=== PATIENT | female | born 1960 | race Caucasian/White ===

== ENCOUNTER → 2016-07-27 | Outpatient (CLI) | payer BC ==
--- NOTE | 2016-07-27 15:04 | ECGEPIP ---
Stationary ECG Study [facility] Test Date: 2016-07-27 Pat Name: HUBER TRONCOSO Department: Room: - Gender: F Lost Charge Card Clerk: BRITTANY : 1960 Requested By: Jennifer Lundberg Order Number: [id number] Reading MD: Rody Wheeler Measurements Intervals [place] Rate: 71 P: 65 CO: 148 QRS: 38 QRSD: 97 T: 28 QT: 384 QTc: 418 Interpretive Statements SINUS RHYTHM POSSIBLE LEFT ATRIAL ENLARGEMENT INCOMPLETE RIGHT BUNDLE BRANCH BLOCK NO PRIOR PRWP Electronically Signed On 07-27-2016 15:04:01 EST by Rody Wheeler
== END ==
LOC: M EKG 12:01
PROVIDERS: ATTEND Nurse Practitioner Adult Health
DX: I45.10 Unspecified right bundle-branch block (principal); R00.2 Palpitations

== ENCOUNTER → 2019-06-24 | Outpatient (REF) | payer BC, OTHER ==
[2019-06-24 18:38] LABS: INFLUENZA A AMPLIFICATION POSITIVE (NEGATIVE); INFLUENZA B AMPLIFICATION NEGATIVE (NEGATIVE)
== END ==
LOC: M LAB REF 16:51
PROVIDERS: ATTEND Registered Nurse
DX: R50.9 Fever, unspecified (principal); J02.9 Acute pharyngitis, unspecified; R11.2 Nausea with vomiting, unspecified

== ENCOUNTER → 2019-11-10 | Outpatient (REF) | payer BC, OTHER ==
[2019-11-10 13:25] LABS: BASO # 0.1 10^3/uL (0.0-0.2); EOS # 0.3 10^3/uL (0.0-0.5); EOS % 10.4 % (0.0-3.0); HEMATOCRIT 39.2 % (36.0-47.0); HEMOGLOBIN 12.6 g/dl (12.0-15.5); LYMPH # 1.2 10^3/uL (1.5-5.0); LYMPH % 41.4 % (24.0-44.0); MEAN CORPUSCULAR HEMOGLOBIN 31.6 pg (27.0-33.0); MEAN CORPUSCULAR HGB CONC 32.1 g/dl (32.0-36.5); MEAN CORPUSCULAR VOLUME 98.2 fl (80.0-96.0); MONO # 0.4 10^3/uL (0.0-0.8); MONO % 14.8 % (0.0-5.0); NEUTROPHILS % 31.4 % (36.0-66.0); PLATELET COUNT, AUTOMATED 224 10^3/uL (150-450); RED BLOOD COUNT 3.99 10^6/uL (4.00-5.40)
[2019-11-10 14:00] LABS: NEUTROPHILS # 0.9 10^3/uL (1.5-8.5)
== END ==
LOC: M LAB REF 12:23
PROVIDERS: ATTEND Internal Medicine
DX: D72.819 Decreased white blood cell count, unspecified (principal)

== ENCOUNTER → 2019-11-19 | Outpatient (REF) | payer BC ==
[2019-11-19 17:52] LABS: PERCENT SATURATION 21.3 % (13.2-45.0)
[2019-11-19 17:58] LABS: FOLATE 18.3 NG/ML
== END ==
LOC: M LAB REF 17:07
PROVIDERS: ATTEND Internal Medicine
DX: R53.83 Other fatigue (principal); D72.819 Decreased white blood cell count, unspecified

== ENCOUNTER → 2020-12-05 | Outpatient (REF) | payer BC ==
[2020-12-05 13:31] LABS: FOLATE 17.9 NG/ML
== END ==
LOC: M LAB REF 12:14
PROVIDERS: ATTEND Internal Medicine
DX: D72.819 Decreased white blood cell count, unspecified (principal)

== ENCOUNTER → 2021-02-20 | Outpatient (REF) | payer BC ==
[2021-02-20 18:55] LABS: FREE T3 2.8 PG/ML (2.2-4.0)
== END ==
LOC: M LAB REF 17:03
PROVIDERS: ATTEND Internal Medicine
DX: R53.83 Other fatigue (principal); R63.4 Abnormal weight loss

== ENCOUNTER → 2021-05-15 | Outpatient (REF) | LOC: M LABSMTC 10:37 | PROVIDERS: ATTEND Pediatrics | DX: Z20.822 Contact with and (suspected) exposure to COVID-19 (principal) ==

== ENCOUNTER → 2022-03-15 | Outpatient (REF) | payer BC | LOC: M LAB REF 12:15 | PROVIDERS: ATTEND Internal Medicine | DX: L65.9 Nonscarring hair loss, unspecified (principal) ==

== ENCOUNTER 2022-05-14 10:28 | Emergency (ER) | payer BC, OTHER ==
[~2022-05-14] VITALS: Ht 162.6 cm; Wt 44.5 kg
[2022-05-14] MEDS ORDERED: CEFD300C41 PO (12:25)
[2022-05-14 12:37] VITALS: BP 117/75
[2022-05-14] MEDS ORDERED: DOXY-443 PO (16:30)
== END 2022-05-14 12:39 | disposition home or self-care (01) ==
LOC: M ED 10:28
DX: J01.90 Acute sinusitis, unspecified (principal); Z88.2 Allergy status to sulfonamides

== ENCOUNTER → 2023-03-06 | Outpatient (REF) | payer OTHER ==
[~2023-03-06] MED LIST: CEFD300C42 PO; DOXY-443 PO
== END ==
LOC: M LAB REF 16:25
PROVIDERS: ATTEND Internal Medicine
DX: Z00.01 Encounter for general adult medical examination with abnormal findings (principal); L65.9 Nonscarring hair loss, unspecified; D72.819 Decreased white blood cell count, unspecified

== ENCOUNTER → 2024-03-31 | Outpatient (REF) | payer MEDICARE, OTHER ==
[~2024-03-31] MED LIST changes: +CEFD1CAP9 PO; -CEFD300C42 PO; +DOXY-441 PO; -DOXY-443 PO
== END ==
LOC: M LAB REF 17:16
PROVIDERS: ATTEND Internal Medicine
DX: D72.819 Decreased white blood cell count, unspecified (principal); Z13.6 Encounter for screening for cardiovascular disorders; E78.00 Pure hypercholesterolemia, unspecified

== ENCOUNTER → 2025-04-05 | Outpatient (REF) | payer MEDICARE, OTHER | LOC: M LAB REF 17:06 | PROVIDERS: ATTEND Internal Medicine | DX: D72.819 Decreased white blood cell count, unspecified (principal) ==